=== PATIENT | female | born 1965 | race American Indian/Alaskan Native ===

== ENCOUNTER 2020-03-14 16:16 | Outpatient (CLI) | payer OTHER ==
--- NOTE | 2020-03-21 08:59 | Mammography Report ---
DIGITAL SCREENING MAMMOGRAM WITH CAD, 03/14/2020 INDICATION: Routine screening mammography. TECHNIQUE: Digital bilateral 2D mammography was obtained in the craniocaudal and mediolateral obliq ue projections. This examination was interpreted with the benefit of Computer-Aided Detection analysi s. COMPARISON: 10/10/2018. FINDINGS: Breast Density: There are scattered areas of fibroglandular density. There is no evidence of dominant mass, suspicious calcifications or architectural distortion in eithe r breast. Stable bilateral benign-appearing nodularity. IMPRESSION: Follow up recommendation: Routine yearly BI-RADS Category 2: Benign. A "normal" or negative report should not discourage follow up or biopsy of a clinically significant f inding. A written summary of these findings will be mailed to the patient. The patient will be entered into a mammography reporting system which will generate a reminder letter for the patient's next appointmen t at the appropriate interval. The [employer] recommends yearly mammograms starting at age 40 and continuing as l varun as a woman is in good health. Breast MRI is recommended for women with an approximate 20-25% or greater lifetime risk of breast cancer, including women with a strong family history of breast or ova dylon cancer or who have been treated for Hodgkin's disease. Signer Name: Marvin Umanzor MD Signed: 03/21/2020 8:55 AM Workstation Name: [employer]
== END 2020-03-14 16:17 | disposition home or self-care (01) ==
LOC: SPVWC 16:16
PROVIDERS: ATTEND Clinical Nurse Specialist Adult Health
DX: Z12.31 Encounter for screening mammogram for malignant neoplasm of breast (principal)
CPT/HCPCS: 77067

== ENCOUNTER 2020-09-10 14:01 | Emergency (ER) | payer OTHER ==
--- NOTE | 2020-09-10 15:45 | Emergency Department Report ---
ED General Adult HPI - General Chief complaint: Neck Pain/Injury Stated complaint: REFERRED BY DOCTOR, ELEVATED BLOOD PRESSURE Time Seen by Provider: 09/10/20 15:35 Source: patient Mode of arrival: Ambulatory Limitations: No Limitations - History of Present Illness Initial comments: 55-year-old -[place] female patient with history of hypertension presents from her primary care provider's office for elevated blood pressure. Patient states her blood pressure was 189/112 in the office. She states she is currently taking blood pressure medication and was switched to a beta-melisa today. She denies any headache, dizziness, numbness/tingling/weakness in her limbs, difficulty with speech/ambulation, confusion, or memory loss. Patient states she is feeling well. She states she does have neck pain that she is being evaluated for by her primary care doctor, however she is not currently taking any OTC medicine and has not been prescribed any pain medication for her neck pain. Pain occurred from a work-related accident per patient. - Related Data Previous Rx's Medication Instructions Recorded Last Taken Type Diclofenac Sodium 50 mg PO TID PRN #21 tablet. 09/10/20 Unknown Rx traMADoL [Ultram 50 MG tab] 50 mg PO Q8HR PRN #10 tablet 09/10/20 Unknown Rx Allergies Allergy/AdvReac Type Severity Reaction Status Date / Time morphine Allergy Unknown Verified 09/10/20 15:08 ED Review of Systems ROS: Stated complaint: REFERRED BY DOCTOR, ELEVATED BLOOD PRESSURE Other details as noted in HPI Constitutional: denies: diaphoresis, fever, malaise ENT: denies: throat pain Respiratory: denies: shortness of breath Cardiovascular: denies: chest pain Gastrointestinal: denies: abdominal pain Skin: denies: change in color Neurological: denies: numbness, paresthesias, abnormal gait ED Past Medical Hx - Past Medical History Hx Hypertension: Yes Hx Dementia: Yes - Surgical History Additional Surgical History: - Social History Smoking Status: Never Smoker Substance Use Type: Alcohol - Medications Home Medications: Home Medications Medication Instructions Recorded Confirmed Last Taken Type Diclofenac Sodium 50 mg PO TID PRN #21 tablet. 09/10/20 Unknown Rx traMADoL [Ultram 50 MG tab] 50 mg PO Q8HR PRN #10 tablet 09/10/20 Unknown Rx ED Physical Exam - General Limitations: No Limitations General appearance: alert, in no apparent distress - Head Head exam: Present: atraumatic, normocephalic - Eye Eye exam: Present: normal appearance - Respiratory Respiratory exam: Present: normal lung sounds bilaterally. Absent: respiratory distress - Cardiovascular Cardiovascular Exam: Present: regular rate, normal rhythm - Neurological Exam Neurological exam: Present: alert, oriented X3, CN II-XII intact, normal gait. Absent: motor sensory deficit - Psychiatric Psychiatric exam: Present: normal affect, normal mood - Skin Skin exam: Present: warm, dry, intact, normal color. Absent: rash ED Course Vital Signs 09/10/20 09/10/20 15:05 15:11 Temperature 98.5 F Pulse Rate 106 H Respiratory 20 Rate Blood Pressure 154/98 O2 Sat by Pulse 97 Oximetry ED Medical Decision Making - Medical Decision Making 55-year-old -[place] female patient with history of hypertension presents from her primary care provider's office for elevated blood pressure. Patient states her blood pressure was 189/112 in the office. She states she is currently taking blood pressure medication and was switched to a beta-melisa today. She denies any headache, dizziness, numbness/tingling/weakness in her limbs, difficulty with speech/ambulation, confusion, or memory loss. Patient states she is feeling well. She states she does have neck pain that she is being evaluated for by her primary care doctor, however she is not currently taking any OTC medicine and has not been prescribed any pain medication for her neck pain. Pain occurred from a work-related accident per patient. Blood pressure here in ED is noted to be 154/98. She remains asymptomatic. She is stable for discharge home and continued follow-up with her primary care doctor concerning her blood pressure and neck pain. Discussed signs and symptoms that should prompt immediate return to the emergency department in detail patient verbalized understanding. Critical care attestation.: If time is entered above; I have spent that time in minutes in the direct care of this critically ill patient, excluding procedure time. ED Disposition Clinical Impression: Elevated blood pressure reading, Neck pain Disposition: TO HOME OR SELFCARE Is pt being admited?: No Condition: Stable Instructions: Hypertension, Adult Prescriptions: Diclofenac Sodium 50 mg PO TID PRN #21 tablet. PRN Reason: pain traMADoL [Ultram 50 MG tab] 50 mg PO Q8HR PRN #10 tablet PRN Reason: Pain , Severe (7-10) Referrals: PRIMARY CARE, [Referring] - 3-5 Days
== END 2020-09-10 16:22 | disposition home or self-care (01) ==
LOC: ED 14:01
CPT/HCPCS: 99282